=== PATIENT | male | born 1930 | race Caucasian/White ===

== ENCOUNTER 2018-01-26 20:22 | Inpatient (IN) | payer OTHER ==
[~2018-01-26] VITALS: Ht 170.2 cm; Wt 91.6 kg
--- NOTE | ~2018-01-26 | 2DMMODE ---
[facility] [address] [place] [address] 2 D/M-MODE ECHOCARDIOGRAM Name: SHADIYING Zeyad Room #: 358-P [facility] IN ..#: [id number] Admission: 01/27/18 Attend Phys: Lawrence Draper MD Discharge: Date of : [birth year] Date of Service: 01/27/18 1210 Report #: [id number] THIS REPORT FOR: //name// APPROVED REPORT Study performed: 01/27/2018 09:08:02 EXAM: Comprehensive 2D, Doppler, and color-flow Echocardiogram Patient Location: Echo lab Room #: [facility] Status: routine BSA: 2.03 HR: 61 bpm BP: 165/89 mmHg Rhythm: NSR Other Information Study Quality: Fair Technically limited study due to lung disease and body habitus. Indications Elevated BNP, Syncope. Hx: CHF, COPD, Afib 2D Dimensions RVDd: 40.40 mm LVEF(%): 52.63 (>50%) IVSd: 13.72 (7-11mm) LVOT Diam: 20.97 (18-24mm) LVDd: 44.70 mm PWd: 13.01 (7-11mm) LVDs: 32.68 (25-40mm) Aortic Root: 36.18 mm Garcia's LVEF: 52.63 % Volumes Left Atrial Volume (Systole) Single Plane 4CH: 50.58 mL Single Plane 2CH: 59.07 mL LA ESV Index: 28.00 mL/m2 Aortic Valve AoV Peak Nathaniel.: 3.83 m/s AO Peak Gr.: 58.74 mmHg LVOT Max P.13 mmHg AO Mean Gr.: 42.62 mmHg AO V2 Mean: 3.15 m/s LVOT Max V: 0.73 m/s AO V2 VTI: 116.23 cm FARTUN Vmax: 0.66 cm2 [facility] [place] [address] 2 D/M-MODE ECHOCARDIOGRAM Name: YING HSU Room #: 358-P [facility] IN ..#: [id number] Admission: 01/27/18 Attend Phys: Lawrence Draper MD Discharge: Date of : [birth year] Date of Service: 01/27/18 1210 Report #: [id number] Mitral Valve E/A Ratio: 0.5 MV Decel. Time: 434.68 ms MV E Max Nathaniel.: 0.64 m/s MV A Nathaniel.: 1.27 m/s MV PHT: 126.06 ms IVRT: 143.02 ms Left Ventricle The left ventricle is normal size. There is normal LV segmental wall motion. Mild concentric left ventricular hypertrophy. Left ventricular systolic function is normal. LVEF is 55-60%. Mild diastolic dysfunction is present (impaired relaxation pattern). Right Ventricle The right ventricle is normal size. The right ventricular systolic function is normal. Atria The left atrium size is normal. The right atrium size is normal. Aortic Valve The aortic valve is poorly visualized but appears heavily calcified. No aortic regurgitation is present. Moderate to severe aortic stenosis. Mitral Valve The mitral valve is normal in structure. There is no mitral valve regurgitation noted. No evidence of mitral valve stenosis. Tricuspid Valve The tricuspid valve is normal in structure. Trace tricuspid regurgitation. Pulmonic Valve Pulmonic valve is poorly visualized. Great Vessels The aortic root is normal in size. Ascending aorta is not well visualized. IVC is poorly visualized. Pericardium There is no pericardial effusion. [facility] [address] [place] [address] 2 D/M-MODE ECHOCARDIOGRAM Name: YING HSU Room #: 358-P [facility] IN .R.#: [id number] Admission: 01/27/18 Attend Phys: Lawrence Draper MD Discharge: Date of : [birth year] Date of Service: 01/27/18 1210 Report #: [id number] <Conclusion> Mild concentric left ventricular hypertrophy. LVEF is 55-60%. Moderate to severe aortic stenosis. <ELECTRONICALLY SIGNED> By: Arnav Diaz MD, [facility] 01/27/18 1210 121 1210 Arnav Diaz MD, FACC /INF
--- NOTE | ~2018-01-26 | EKG ---
[address] [address] ELECTROCARDIOGRAM REPORT Name: YING HSU Room #: 358-P ADM IN M.R.#: [id number] Admission: 01/27/18 Attend Phys: Lawrence Draper MD Discharge: Date of : [birth year] Report #: [id number] THIS REPORT FOR: //name// [facility] ED Test Date: 2018-01-26 Test Time: 20:53:21 Pat Name: YING HSU Department: Room: 358 Gender: M Front End Developer Designer: LENY : [id number] Requested By: Shira Mead Order Number: [id number] MD: Willem Davis Measurements Intervals [place] Rate: 98 P: RI: QRS: -32 QRSD: 97 T: 77 QT: 333 QTc: 426 Interpretive Statements Atrial fibrillation Left axis deviation Borderline repolarization abnormality Compared to ECG 06/25/2014 15:25:01 Left-axis deviation now present Sinus rhythm no longer present Electronically Signed On 01-27-2018 8:40:07 CDT by Willem Davis [email or web address] <ELECTRONICALLY SIGNED> By: Willem Davis MD, [facility] 01/27/18 0840 52 52 Willem Davis MD, [facility] /EPI
--- NOTE | ~2018-01-26 | HC ---
[facility] [place] [address] [place] [address] CONSULTATION Name: YING HSU Room #: 358-P [facility] IN .R.#: [id number] Admission: 01/27/18 Attend Phys: Lawrence Draper MD Discharge: 01/29/18 Date of : [birth year] Report #: [id number] THIS REPORT FOR: //name// CC: Lawrence Rosas MD DATE OF SERVICE: 01/29/2018 TYPE OF REPORT: Cardiology consultation. HISTORY OF PRESENT ILLNESS: The patient is an 87-year-old white male who I was asked to see in the hospital today after he had a syncopal spell. The patient had triple vessel bypass surgery at [facility] in 2009. He has been followed by my partner, Dr. Gaxiola since that time. He has a known history of at least moderate aortic stenosis. He was last seen by Dr. Gaxiola's nurse practitioner last summer. The patient is not very active because of his age and uses a walker. He also has a history of COPD. He used to smoke a pack of cigarettes a day and he quit 10 years ago. He is on chronic oxygen. He also has sleep apnea and uses a CPAP. He is followed by Dr. Mayco Lu. According to the , the patient shuffles a lot. He still mows the grass with a riding mower, however. Recently, he denied any chest pain. He does get short of breath with minimal exertion. He does have chronic edema. He has had no palpitations. The patient does fall. He apparently fell a month ago, was taken to the Emergency Room and found to have a compression fracture. Apparently, the patient lives at home with his , 3 days ago. The states she was out in the backyard. The states when she went into the house, the patient was lying on the floor. There was no seizure activity. He had not vomited and he was not bleeding. There is no diarrhea. She initially states that he was unresponsive. The patient finally woke up. Paramedics were called and he was brought to the Emergency Room. Since his admission, the patient did undergo an echocardiogram. The echocardiogram showed left ventricular hypertrophy, ejection fraction of 55%. There was evidence of at least [id number]-kw-abfuqw aortic stenosis. The aortic valve is heavily calcified and the peak gradient across the aortic valve was 58 mmHg. On the monitor, the patient has remained in sinus rhythm with sinus bradycardia but no arrhythmias. Because of the syncopal spell, Cardiology consultation was requested. PAST MEDICAL HISTORY: Otherwise significant for back surgery, cataract extraction. He has a history of Acevedo's esophagus, hypertension, hyperlipidemia, sleep apnea and COPD. MEDICATIONS: Include a nebulizer, aspirin, carvedilol, Protonix, red yeast rice tablets, Flomax and Proscar. ALLERGIES: He has a previous intolerance to LIPITOR and ZOCOR, which made him [facility] [address] [place] [address] CONSULTATION Name: YING HSU Zeyad Room #: 358-P [facility] IN ..#: [id number] Admission: 01/27/18 Attend Phys: Lawrence Draper MD Discharge: 01/29/18 Date of : [birth year] Report #: [id number]. FAMILY HISTORY: Positive for heart disease. SOCIAL HISTORY: He is a retired numerical control machine machinist. He and his live outside of [place], [place]. Quit smoking 10 years ago. No alcohol abuse. REVIEW OF SYSTEMS: He has had no history of stroke, liver disease. He has Acevedo's esophagus. No history of kidney disease, cancer, psychiatric illness or chronic skin condition. PHYSICAL EXAMINATION: GENERAL: Revealed an elderly, frail-appearing male, lying in bed, appeared in no acute distress. VITAL SIGNS: He had a blood pressure 140/70, pulse 60 and he is afebrile. HEENT: He is anicteric. Conjunctivae pink. Mucous membranes appear dry. NECK: Veins are not distended. CHEST: Clear to auscultation. CARDIOVASCULAR: Regular rate and rhythm, grade 4 systolic ejection murmur along the left sternal border. ABDOMEN: Soft. EXTREMITIES: Had no edema. Dorsalis pedis pulses 2+ in the right, cannot be palpated on the left. SKIN: Cool and dry. NEUROLOGICAL: Nonfocal. RADIOLOGICAL DATA: ECG on admission showed a sinus rhythm, nonspecific ST-segment changes. His workup, he had a CT scan of the chest using a PE protocol that showed no pulmonary embolus, no aortic dissection, atelectasis noted, spondylosis of the spine and compression fractures. He had a chest x-ray on admission that showed poor inspiration and atelectasis. Of note is he actually had a carotid Doppler study prior to his bypass surgery back in 2009 that showed plaque formation. LABORATORY DATA: His lab work, sodium 136, potassium 4.1, BUN 21 and creatinine 1.1. Liver function studies were normal. Troponin 0.06. BNP 824. White blood cell count 6.7 and hemoglobin of 12. TSH 2.3. Urinalysis is negative for protein. IMPRESSION AND RECOMMENDATIONS: 1. Syncope. Suspect secondary aortic stenosis. The patient is not an operative candidate. We will consider referring him to a transcatheter aortic valve replacement program. 2. Coronary artery disease with previous bypass surgery. No recent angina. I would continue aspirin a day. 3. Chronic obstructive pulmonary disease. The patient is oxygen dependent. [facility] [address] [place] [address] CONSULTATION Name: YING HSU Room #: 358-P [facility] IN ..#: [id number] Admission: 01/27/18 Attend Phys: Lawrence Draper MD Discharge: 01/29/18 Date of : [birth year]/29/[birth year] Report #: [id number] 4. Sleep apnea. 5. Hyperlipidemia. The patient cannot tolerate statin drugs. He currently uses red yeast rice tablets. 6. Prostatism. 7. Previous tobacco abuse. 8. History of Acevedo's esophagus. By: [id number] Arnav Diaz MD, FACC /nt
[2018-01-26 20:22] VITALS: BP 159/87
[~2018-01-26 20:22] MED LIST: ADULT LOW DOSE81 MG PO; ALBUTEROL2.5 MG/31 INH; ASPIRIN325 PO; BIFERA RX TABL1 EACH PO; CARVEDILOL3.125 MG PO; CHLORHEXADINE120 ML TP; CO Q-10200 MG PO; COREG6.25 MG PO; DARVOCET-N 1001 EACH PO; FISH OIL 1,2001 EAC4 PO; FISHOIL PO; IMDUR 30 MG TAB30 M1 PO; LEVAQUIN 500 M500 M2 PO; MULTIPLE VITAM1 EAC3 PO; POTASSIUM20 PO; PREDNISONE 10 M10 MG PO; PROTONIX40 M1 PO; PROTONIX40 M2 PO; RED YEAST RICE600 MG PO; SYMBICORT160 MCG/4. INH; TYLENOL325 MG PO; VENTOLIN HFA 1818 GM INH; VIT C 500 MG-E500 MG PO; VITAMINC500 PO; ZOCOR 20 MG TAB20 M1 PO; [UNRECOGNIZED DRUG - OTHER] PO
[2018-01-26 21:26] LABS: ABSOLUTE NEUTROPHILS 4.7 thou/uL (1.4-8.2); BASOPHILS 0.4 % (0.0-2.0); EOSINOPHILS 0.7 % (0.0-3.0); HEMATOCRIT 34.7 % (42.0-52.0); LYMPHOCYTES 25.1 % (24.0-44.0); MCH 33.3 pg (26.0-34.0); MCHC 34.6 g/dL (28.0-37.0); MCV 96.1 fL (80.0-100.0); PLATELET COUNT 176 thou/uL (150-400); POLYS 70.8 % (36.0-66.0); RBC 3.61 mil/uL (4.50-6.00); RDW 13.7 % (10.5-14.5); WBC 6.7 thou/uL (4.0-11.0)
[2018-01-26 21:36] LABS: ANION GAP 3 mmol/L (7-16); BUN 21 mg/dL (7-18); CALCIUM 9.1 mg/dL (8.5-10.1); CHLORIDE 103 mmol/L (98-107); CO2 30 mmol/L (21-32); CREATININE 1.1 mg/dL (0.7-1.3); GLUCOSE 128 mg/dL (74-106); POTASSIUM 4.1 mmol/L (3.5-5.1); SODIUM 136 mmol/L (136-145)
[2018-01-26 21:40] LABS: BE(vivo) 2.6 mmol/L (-2 to +3); HCO3 27.9 mmol/L (22.0-26.0); PO2 100.7 mmHg (80.0-100.0); pH 7.401 (7.360-7.450); sO2 97.6 % (92.0-98.0)
[2018-01-26 21:46] LABS: TROPONIN-I <0.06 ng/mL (<0.06)
[2018-01-27] VITALS (8 sets, daily range): BP systolic 136–186; BP diastolic 73–99
[2018-01-27] MEDS ORDERED: SYNTHROID75 MCG PO (04:17)
[2018-01-27] MEDS ORDERED: PROSCAR 5MG TABL5 MG PO (04:18)
[2018-01-27 10:48] LABS: URINE BILIRUBIN NEGATIVE (Negative); URINE BLOOD NEGATIVE (Negative); URINE CLARITY CLEAR; URINE COLOR YELLOW; URINE GLUCOSE-RANDOM* NEGATIVE (Negative); URINE KETONES NEGATIVE (Negative); URINE LEUKOCYTES-REFLEX NEGATIVE (Negative); URINE NITRITE-REFLEX NEGATIVE (Negative); URINE PROTEIN (DIPSTICK) NEGATIVE (Negative); URINE SPECIFIC GRAVITY <= 1.005 (1.005-1.035); URINE UROBILINOGEN 0.2 E.U./dl (0.2-1.0)
[2018-01-28 04:44] VITALS: BP 160/87
[2018-01-28 06:16] LABS: MAGNESIUM 2.2 mg/dL (1.8-2.4); TROPONIN-I <0.06 ng/mL (<0.06)
[2018-01-28 07:45] VITALS: BP 191/93
[2018-01-28 12:42] VITALS: BP 153/74
[2018-01-28 15:55] VITALS: BP 177/94
[2018-01-28 19:15] VITALS: BP 172/93
[2018-01-29 00:22] VITALS: BP 151/80
[2018-01-29 07:26] VITALS: BP 167/87
[2018-01-29] MEDS ORDERED: MUCINEX DM ER1 EAC1 PO (08:41)
[2018-01-29 11:23] VITALS: BP 138/70
[2018-01-29 14:16] VITALS: BP 138/70
[2018-01-29 15:39] VITALS: BP 150/80
[2018-01-29 17:11] VITALS: BP 138/70
== END 2018-01-29 17:56 | disposition home health service (06) | DRG 307 ==
LOC: ER 20:22 → 3W 01-27 00:31 → EROBS 01-27 00:31 → 3W 01-27 01:36 → ENTRNSPT 01-29 17:45 → 3W 01-29 17:56
PROVIDERS: Emergency Medicine; Nurse Practitioner Acute Care
PROC: 5A09357 Assistance with Respiratory Ventilation, Less than 24 Consecutive Hours, Continuous Positive Airway Pressure (ICD-10-PCS; principal; 2018-01-27)
PROC: 5A09357 Assistance with Respiratory Ventilation, Less than 24 Consecutive Hours, Continuous Positive Airway Pressure (ICD-10-PCS; 2018-01-28)
PROC: 5A09357 Assistance with Respiratory Ventilation, Less than 24 Consecutive Hours, Continuous Positive Airway Pressure (ICD-10-PCS; 2018-01-29)
DX: I35.0 Nonrheumatic aortic (valve) stenosis (principal); J96.11 Chronic respiratory failure with hypoxia; R55 Syncope and collapse; I50.9 Heart failure, unspecified; J44.9 Chronic obstructive pulmonary disease, unspecified; J06.9 Acute upper respiratory infection, unspecified; G47.33 Obstructive sleep apnea (adult) (pediatric); E78.5 Hyperlipidemia, unspecified; I25.10 Atherosclerotic heart disease of native coronary artery without angina pectoris; I25.5 Ischemic cardiomyopathy; N40.0 Benign prostatic hyperplasia without lower urinary tract symptoms; E03.9 Hypothyroidism, unspecified; I11.0 Hypertensive heart disease with heart failure; K21.9 Gastro-esophageal reflux disease without esophagitis; Z88.8 Allergy status to other drugs, medicaments and biological substances; Z99.81 Dependence on supplemental oxygen; Z82.49 Family history of ischemic heart disease and other diseases of the circulatory system; Z95.1 Presence of aortocoronary bypass graft; Z79.82 Long term (current) use of aspirin; Z79.899 Other long term (current) drug therapy; Z87.891 Personal history of nicotine dependence; W18.39XA Other fall on same level, initial encounter; Y93.89 Activity, other specified; Y92.89 Other specified places as the place of occurrence of the external cause; Y99.8 Other external cause status
CPT/HCPCS: 10779